=== PATIENT | male | born 1935 | race Caucasian/White ===

== ENCOUNTER 2018-06-28 09:15 | Day surgery (SDC) | payer BC, OTHER ==
[2018-06-15 15:59] VITALS: BMI 22.6
[2018-06-28 09:35] VITALS: TEMP 97.7
[2018-06-28] MEDS ORDERED: LIDOCAINE HCL/PF 2% SDV 5ML VIAL ONE (10:11)
[2018-06-28] MEDS ORDERED: PROPOFOL 20 ML ONE ×2 (10:12)
[2018-06-28 11:12] VITALS: PULSE 80
[2018-06-28 11:40] VITALS: BP 128/82
--- NOTE | 2018-06-30 12:32 | PATH ---
Surgical Pathology Report Patient Name: JOSE MIGUEL BROWN [facility]. Rec. #: [id number] /Age/Gender: 1935 (Age: 82) / M Account: [id number] Location: [facility] Taken: 06/28/2018 Received: 06/28/2018 Reported: 06/30/2018 Physicians: Komal Rose M.D. Specimen(s) Received A: SECOND PORTION DUODENUM B: BX ANTRUM C: POLYPS IN FUNDUS D: BX GE JUNCTION Clinical History Dyspepsia Postoperative diagnosis: Hiatal hernia, polyps, gastritis Final Diagnosis A. SECOND PORTION OF DUODENUM, BIOPSY: DUODENAL MUCOSA WITH NO PATHOLOGIC FINDINGS. B. ANTRUM, BIOPSY: MILD CHRONIC GASTRITIS. IMMUNOSTAIN IS NEGATIVE FOR H. PYLORI ORGANISMS. C. FUNDUS, POLYPS, BIOPSY: GASTRIC FUNDIC GLAND POLYP. IMMUNOSTAIN IS NEGATIVE FOR H. PYLORI ORGANISMS. D. GE JUNCTION, BIOPSY: COLUMNAR (GASTRIC CARDIA-TYPE) MUCOSA SHOWING MILD CHRONIC INFLAMMATION. NEGATIVE FOR INTESTINAL METAPLASIA. Electronically Signed Latasha Umana M.D. Gross Description A. Received in formalin, labeled "second portion of duodenum" is a [place], irregular portion of soft tissue measuring 0.3 cm. in greatest dimension. The specimen is submitted in toto in one cassette. B. Received in formalin, labeled "antrum" is a [place], irregular portion of soft tissue measuring 0.4 cm. in greatest dimension. The specimen is submitted in toto in one cassette. C. Received in formalin, labeled "polyps in fundus" is a [place], irregular portion of soft tissue measuring 0.4 cm. in greatest dimension. The specimen is submitted in toto in one cassette. D. Received in formalin, labeled "GE junction" is a [place], irregular portion of soft tissue measuring 0.4 cm. in greatest dimension. The specimen is submitted in toto in one cassette. 06/28/201806/28/2018
== END 2018-06-28 11:20 | disposition home or self-care (01) ==
LOC: FASU-ENDO 09:15
PROVIDERS: ATTEND Internal Medicine Gastroenterology
PROC: 0DB68ZX Excision of Stomach, Via Natural or Artificial Opening Endoscopic, Diagnostic (ICD-10-PCS; 2018-06-28)
PROC: 0DB48ZX Excision of Esophagogastric Junction, Via Natural or Artificial Opening Endoscopic, Diagnostic (ICD-10-PCS; 2018-06-28)
PROC: 0DB98ZX Excision of Duodenum, Via Natural or Artificial Opening Endoscopic, Diagnostic (ICD-10-PCS; principal; 2018-06-28 10:38)
DX: K31.7 Polyp of stomach and duodenum (principal); K29.50 Unspecified chronic gastritis without bleeding; K44.9 Diaphragmatic hernia without obstruction or gangrene; K31.89 Other diseases of stomach and duodenum; R10.13 Epigastric pain
CPT/HCPCS: 88305-TC; 88342-TC

== ENCOUNTER 2018-09-06 09:09 | Day surgery (SDC) | payer BC, OTHER ==
[2018-08-31 10:55] VITALS: BMI 22.8
[2018-09-06] MEDS ORDERED: LIDOCAINE HCL/PF 2% SDV 5ML VIAL ONE (09:50)
[2018-09-06] MEDS ORDERED: PROPOFOL 20 ML ONE (09:50)
[2018-09-06 13:01] VITALS: TEMP 97.8
[2018-09-06 13:13] VITALS: BP 125/88; PULSE 83
== END 2018-09-06 11:35 | disposition home or self-care (01) ==
LOC: FASU-ENDO 09:09
PROVIDERS: ATTEND Internal Medicine Gastroenterology
PROC: 0DJD8ZZ Inspection of Lower Intestinal Tract, Via Natural or Artificial Opening Endoscopic (ICD-10-PCS; principal; 2018-09-06 10:14)
DX: Z12.11 Encounter for screening for malignant neoplasm of colon (principal); K57.30 Diverticulosis of large intestine without perforation or abscess without bleeding; K64.0 First degree hemorrhoids

== ENCOUNTER 2022-02-02 04:57 | Day surgery (SDC) | payer OTHER, MEDICARE ==
[2022-02-01 10:11] VITALS: BMI 22.5
[2022-02-02] MEDS ORDERED: LIDOCAINE HCL/PF (2%) 40 MG/2 ML VIAL ONE (06:49)
[2022-02-02] MEDS ORDERED: PROPOFOL 60 ML ONE (06:49)
[2022-02-02] MEDS ORDERED: ROCURONIUM BROMIDE 50 MG/5 ML SYRINGE ONE (06:52)
[2022-02-02] MEDS ORDERED: SUCCINYLCHOLINE CHLORIDE 200 MG/10 ML SYRINGE ONE (06:52)
[2022-02-02] MEDS ORDERED: ceFAZolin SODIUM 1 GM VIAL ONE (07:42)
[2022-02-02 07:59] LABS: HEMOGLOBIN 14.5 GM/dL (11.7-16.9); MCH 29.6 pg (25.7-33.7); MCHC 34.4 g/dl (32.0-35.9); MEAN PLT VOLUME 7.5 fl (7.5-11.1); PLATELET COUNT 254 10^3/uL (134-434); RBC 4.89 M/mm3 (4.00-5.60); RDW 12.8 % (11.9-15.9); WHITE BLOOD COUNT 7.2 K/mm3 (4.0-10.0)
[2022-02-02 08:04] LABS: BLOOD UREA NITROGEN 15.9 mg/dL (7-18); CALCIUM 9.2 mg/dL (8.5-10.1)
[2022-02-02] MEDS ORDERED: GENTAMICIN 80MG PREMIX BAG IVPB ONE (08:05)
[2022-02-02] MEDS ORDERED: ceFAZolin SODIUM 1 GM VIAL IVPB ONE (08:05)
[2022-02-02 08:07] LABS: CREATININE 1.1 mg/dL (0.55-1.3)
[2022-02-02] MEDS ORDERED: GENTAMICIN SO4 80 MG/2 ML VIAL ONE (08:07)
[2022-02-02 08:08] LABS: BILIRUBIN,TOTAL 0.7 mg/dL (0.2-1)
[2022-02-02 08:09] LABS: TOT PROT 6.8 g/dl (6.4-8.2)
[2022-02-02] MEDS ORDERED: ONDANSETRON 4 MG/2 ML VIAL IVPUSH PRN (09:10)
[2022-02-02] MEDS ORDERED: oxyCODONE HCL 5 MG TABLET PO PRN ×2 (09:10)
[2022-02-02] MEDS ORDERED: LACTATED RINGERS SOLUTION 1,000 ML IV SCH (09:15)
[2022-02-02 14:26] VITALS: RESP 20; TEMP 97.1
[2022-02-02 14:32] VITALS: BP 148/80; PULSE 68
== END 2022-02-02 13:55 | disposition home or self-care (01) ==
LOC: JASU-SURG 04:57
PROVIDERS: ATTEND Urology
PROC: 0V508ZZ Destruction of Prostate, Via Natural or Artificial Opening Endoscopic (ICD-10-PCS; principal; 2022-02-02 07:30)
DX: N40.1 Benign prostatic hyperplasia with lower urinary tract symptoms (principal); N13.8 Other obstructive and reflux uropathy; I10 Essential (primary) hypertension; E03.9 Hypothyroidism, unspecified
CPT/HCPCS: 36415; 80053; 85027; 88305-TC; 94760

== ENCOUNTER 2022-06-17 16:06 | Emergency (ER) | payer OTHER, MEDICARE ==
[2022-06-17 16:41] VITALS: BP 160/83; PULSE 89; RESP 18; TEMP 97.9; BMI 23.6
== END 2022-06-17 16:58 | disposition home or self-care (01) ==
LOC: JERFT 16:06 → JER 16:06 → JERFT 16:58
DX: Z76.0 Encounter for issue of repeat prescription (principal)
CPT/HCPCS: 99281-25

== ENCOUNTER 2024-03-29 05:23 | Day surgery (SDC) | payer OTHER, MEDICARE ==
[2024-03-23 17:25] VITALS: BMI 21.5
[2024-03-29] MEDS: TRIAMCINOLONE ACET 40MG/1ML VIAL IM ONE
[2024-03-29 09:17] VITALS: RESP 18
[2024-03-29] MEDS ORDERED: ACETAMINOPHEN 500 MG TABLET (FP) PO PRN (09:29)
[2024-03-29] MEDS: LIDOCAINE HCL 1% PRESERVATIVE FREE - 30ML VIAL IJ ONE (11:11)
[2024-03-29] MEDS: BUPIVACAINE HCL/PF 0.5% (5 MG/ML) 30 ML VIAL IJ ONE (11:13)
[2024-03-29] MEDS: IOHEXOL 180 MG/1 ML ML IJ ONE (11:15)
[2024-03-29 11:59] VITALS: BP 173/84; PULSE 87; TEMP 97.3
== END 2024-03-29 12:02 | disposition home or self-care (01) ==
LOC: JASU-SURG 05:23
PROVIDERS: ATTEND Pain Medicine Pain Medicine
PROC: 3E0U3BZ Introduction of Anesthetic Agent into Joints, Percutaneous Approach (ICD-10-PCS; 2024-03-29)
PROC: 3E0U33Z Introduction of Anti-inflammatory into Joints, Percutaneous Approach (ICD-10-PCS; principal; 2024-03-29 11:00)
DX: M53.3 Sacrococcygeal disorders, not elsewhere classified (principal)
CPT/HCPCS: 76000-TC-FY

== ENCOUNTER 2024-11-08 07:16 | Day surgery (SDC) | payer OTHER, MEDICARE ==
[2024-11-06 10:28] VITALS: BMI 21.7
[2024-11-08] MEDS: LIDOCAINE HCL 1% PRESERVATIVE FREE - 30ML VIAL IJ ONE
[2024-11-08] MEDS: BUPIVACAINE HCL/PF 0.75% 10 ML VIAL NR ONE
[2024-11-08] MEDS ORDERED: LIDOCAINE HCL/PF 1% SDV 5ML VIAL ONE (07:20)
[2024-11-08] MEDS ORDERED: BUPIVACAINE HCL/PF 0.75% 10 ML VIAL ONE (07:20)
[2024-11-08] MEDS ORDERED: ACETAMINOPHEN 500 MG TABLET (FP) PO PRN (08:44)
[2024-11-08 13:16] VITALS: BP 152/80; PULSE 76; RESP 18; TEMP 97.3
== END 2024-11-08 13:10 | disposition home or self-care (01) ==
LOC: JASU-SURG 07:16
PROVIDERS: ATTEND Pain Medicine Pain Medicine
PROC: 3E0T33Z Introduction of Anti-inflammatory into Peripheral Nerves and Plexi, Percutaneous Approach (ICD-10-PCS; 2024-11-08)
PROC: 3E0T3BZ Introduction of Anesthetic Agent into Peripheral Nerves and Plexi, Percutaneous Approach (ICD-10-PCS; principal; 2024-11-08 12:00)
DX: M47.816 Spondylosis without myelopathy or radiculopathy, lumbar region (principal)
CPT/HCPCS: 76000-TC-FY

== ENCOUNTER 2024-11-30 06:11 | Day surgery (SDC) | payer OTHER, MEDICARE ==
[2024-11-27 15:36] VITALS: BMI 21.8
[2024-11-30] MEDS ORDERED: ACETAMINOPHEN 500 MG TABLET (FP) PO PRN (09:05)
[2024-11-30 11:20] VITALS: RESP 20
[2024-11-30 13:33] VITALS: BP 159/85; PULSE 70; TEMP 97.3
== END 2024-11-30 13:15 | disposition home or self-care (01) ==
LOC: JASU-SURG 06:11
PROVIDERS: ATTEND Pain Medicine Pain Medicine
PROC: 3E0R3BZ Introduction of Anesthetic Agent into Spinal Canal, Percutaneous Approach (ICD-10-PCS; 2024-11-30)
PROC: 3E0R33Z Introduction of Anti-inflammatory into Spinal Canal, Percutaneous Approach (ICD-10-PCS; principal; 2024-11-30 12:26)
DX: M48.061 Spinal stenosis, lumbar region without neurogenic claudication (principal)
CPT/HCPCS: 76000-TC-FY

== ENCOUNTER 2025-01-11 06:08 | Day surgery (SDC) | payer OTHER, MEDICARE ==
[2025-01-09 12:50] VITALS: BMI 20.6
[2025-01-11] MEDS ORDERED: PROPOFOL 20 ML ONE ×2 (12:25→12:58)
[2025-01-11] MEDS ORDERED: ROCURONIUM BROMIDE 50 MG/5 ML SYRINGE ONE ×2 (12:25→13:51)
[2025-01-11] MEDS ORDERED: SUCCINYLCHOLINE CHLORIDE 200 MG/10 ML SYRINGE ONE (12:25)
[2025-01-11] MEDS ORDERED: GLYCOPYRROLATE 0.2 MG/1 ML VIAL ONE (13:23)
[2025-01-11] MEDS: BUPIVACAINE HCL/PF 0.25% (2.5MG/ML) 10 ML VIAL IJ ONE ×2 (13:25)
[2025-01-11] MEDS ORDERED: ESMOLOL HCL 100,000 MCG/10 ML VIAL ONE (13:34)
[2025-01-11] MEDS ORDERED: ONDANSETRON 4 MG/2 ML VIAL ONE (13:44)
[2025-01-11] MEDS ORDERED: DEXAMETHASONE SOD PHOSPHATE 4 MG/1 ML VIAL ONE (13:44)
[2025-01-11] MEDS ORDERED: SUGAMMADEX SODIUM 200 MG/2 ML VIAL ONE ×2 (13:52→15:05)
[2025-01-11] MEDS ORDERED: ONDANSETRON 4 MG/2 ML VIAL IVPUSH PRN (15:13)
[2025-01-11] MEDS ORDERED: LACTATED RINGERS SOLUTION 1,000 ML IV SCH (15:15)
[2025-01-11] MEDS: ACETAMINOPHEN 1000 MG/100 ML BAG IVPB ONE (16:15)
[2025-01-11] MEDS: ACETAMINOPHEN INJECTION 100 ML ONE (16:15)
[2025-01-11 17:32] VITALS: RESP 16
[2025-01-11 18:32] VITALS: BP 145/76; PULSE 75; TEMP 97
== END 2025-01-11 18:25 | disposition home or self-care (01) ==
LOC: JASU-SURG 06:08
PROVIDERS: ATTEND Surgery
PROC: 3E0M45Z Introduction of Adhesion Barrier into Peritoneal Cavity, Percutaneous Endoscopic Approach (ICD-10-PCS; 2025-01-11)
PROC: 8E0W4CZ Robotic Assisted Procedure of Trunk Region, Percutaneous Endoscopic Approach (ICD-10-PCS; 2025-01-11)
PROC: 0YU54JZ Supplement Right Inguinal Region with Synthetic Substitute, Percutaneous Endoscopic Approach (ICD-10-PCS; principal; 2025-01-11 12:00)
DX: K40.90 Unilateral inguinal hernia, without obstruction or gangrene, not specified as recurrent (principal)
CPT/HCPCS: 49650; S2900; 94760; C1781